=== PATIENT | female | born 1975 | race Caucasian/White ===

== ENCOUNTER 2020-04-22 18:17 | Emergency (ER) | payer BC ==
[~2020-04-22] VITALS: Ht 157.5 cm; Wt 64.4 kg
[2020-04-22 18:30] VITALS: Ht 157.5 cm; Wt 64.4 kg
[2020-04-22] MEDS ORDERED: CELEXA10 MG PO (18:42)
[2020-04-22] MEDS ORDERED: REMERON SOLTAB15 MG PO (18:44)
[2020-04-22] MEDS ORDERED: PROTONIX40 MG/Pac1 PO (18:45)
[2020-04-22] MEDS ORDERED: MULTIVITAMIN1 SGL PO (18:45)
[2020-04-22] MEDS ORDERED: COLACE100 MG PO (18:45)
[2020-04-22] MEDS ORDERED: PERCOCET1 TA5 PO (18:47)
[2020-04-22] MEDS ORDERED: MIRALAX17 GM PO (18:48)
[2020-04-22] MEDS ORDERED: XANAX1 MG PO (18:49)
[2020-04-22] MEDS ORDERED: ZOF4 PO (18:50)
[2020-04-22] MEDS ORDERED: PROAIR HFA8.5 GM INH (18:51)
[2020-04-22 19:10] LABS: BASOPHIL % 0.5 % (0-2); RED CELL DISTRIBUTION WIDTH 14.2 % (11.5-14.5)
[2020-04-22 19:11] LABS: PLATELET COUNT 542 x10^3mcL (130-400)
[2020-04-22 19:16] LABS: CALCIUM 8.8 mg/dL (8.5-10.1); CARBON DIOXIDE 27.3 mmol/L (21-32); CHLORIDE SERUM 100 mmol/L (98-107); CREATININE SERUM 0.9 mg/dL (0.6-1.0); GFR1 > 60 mL/min; GLUCOSE SERUM 128 mg/dL (74-106); POTASSIUM SERUM 3.1 mmol/L (3.5-5.1); SODIUM SERUM 136 mmol/L (136-145)
[2020-04-22 19:21] LABS: ALBUMIN 3.7 g/dL (3.4-5.0); ALKALINE PHOSPHATASE 104 U/L (46-116); ALT/SGPT 23 U/L (14-59); AST/SGOT 14 U/L (15-37); BILIRUBIN TOTAL 0.35 mg/dL (0.20-1.00); LIPASE 206 IU/L (73-393); TOTAL PROTEIN, SERUM 7.7 g/dL (6.4-8.2)
[2020-04-22 20:38] VITALS: BP 168/96
== END 2020-04-22 20:38 | disposition home or self-care (01) ==
LOC: ED 18:17
PROVIDERS: Emergency Medicine
DX: N23 Unspecified renal colic (principal); K80.80 Other cholelithiasis without obstruction
CPT/HCPCS: J7030